=== PATIENT | male | born 1955 | race Caucasian/White ===

== ENCOUNTER 2019-08-01 09:10 | Outpatient (CLI) | payer BC, SELFPAY ==
--- NOTE | 2019-08-01 | EST_ITS ---
Patient Info Name: Noah Ordaz Age: 64 years : 1955 Gender: Male Ht: 73 in Wt: 336 lbs BSA: 2.87 m2 Exam Date: 08/01/2019 11:29 AM Exam Location: [facility] Stress Patient Status: Preadmit Admit Date: 07/26/2019 Staff Ordering Physician: Andre Jeter MD Attending Provider: Andre Jeter MD Exercise Technologist: Jadyn Jacobsen RDCS Exercise Physician: Temo Cordoba DO Exam Type: CA stress lilibeth w NM Study Info Indications Z01.818 - Encounter for other preprocedural examination A regadenoson stress test was performed. Summary 1. 1. Negative lexiscan stress test for ischemic ST changes by ECG criteria. 2. 2. Stable hemodynamics throughout the test. 3. 3. Nuclear scan to follow and will be reported separately. Please correlate with it. 4. 4. Patient informed of the above results. Protocol: Lexiscan Stress ECG Details Stage: REST Duration (min): 5 min : 16 sec HR (bpm): 91 SBP (mmHg): 134 DBP (mmHg): 63 Stage: REST Duration (min): 7 min : 57 sec HR (bpm): 100 SBP (mmHg): 134 DBP (mmHg): 63 Stage: STAGE 1 Duration (min): 1 min : 0 sec HR (bpm): 114 SBP (mmHg): 113 DBP (mmHg): 74 Stage: RECOVERY Duration (min): 1 min : 0 sec HR (bpm): 115 SBP (mmHg): 97 DBP (mmHg): 70 Stage: RECOVERY Duration (min): 2 min : 0 sec HR (bpm): 119 SBP (mmHg): 97 DBP (mmHg): 70 Stage: RECOVERY Duration (min): 3 min : 0 sec HR (bpm): 113 SBP (mmHg): 89 DBP (mmHg): 61 Stage: RECOVERY Duration (min): 4 min : 0 sec HR (bpm): 115 SBP (mmHg): 89 DBP (mmHg): 61 Stage: RECOVERY Duration (min): 4 min : 43 sec HR (bpm): 108 SBP (mmHg): 128 DBP (mmHg): 64 Rest HR: 100 bpm Peak HR: 119 bpm Rest Sys BP: 134 mmHg Peak Sys BP: 128 mmHg Max Pred HR: 154 bpm % Max Pred HR: 77 % Target HR: 131 bpm Max RPP: 15,232 bpm*mmHg Termination Reason: Completed protocol Cardiac Symptoms: None Total Time: 1 min : 0 sec Rest Rapp BP: 63 mmHg Peak Rapp BP: 64 mmHg Total Dose: 0.4 mg Resting ECG Sinus rhythm, PVC's, RBBB. Stress ECG No ST changes. Arrhythmias None. Report Signatures
--- NOTE | ~2019-08-01 | NM_ITS ---
EXAMINATION: NM lilibeth stress w perfusion DATE: 08/01/2019 16:13 CDT INDICATION: Dyspnea. TECHNIQUE: Rest images were obtained following intravenous administration of 9.1 mCi Tc99m tetrofosmi n (Myoview). The patient was infused intravenously with Lexiscan (regadenoson). Then, 26.2 mCi Tc99m tetrofosmin (Myoview) was administered intravenously, and stress images were obtained. Data was recon structed into short axis and horizontal and vertical long axis SPECT images. Gated SPECT images were also obtained. COMPARISON: None. FINDINGS: There is a small reversible perfusion abnormality of the septum extending to the apex. No s ignificant fixed perfusion abnormalities are seen. There is no segmental wall motion abnormality. Le ft ventricular ejection fraction measures 55%. IMPRESSION: 1. Small reversible perfusion abnormality of the septal wall extending to the apex, compatible with i schemia. 2. Decreased left ventricular ejection fraction measuring 55%. Reviewed, dictated and finalized at location A. IMPRESSION: 1. Small reversible perfusion abnormality of the septal wall extending to the a pex, compatible with ischemia. 2. Decreased left ventricular ejection fraction measuring 55%.
== END 2019-08-01 09:11 | disposition home or self-care (01) ==
PROVIDERS: PCP Internal Medicine; Visit Provider Internal Medicine
DX: R06.09 Other forms of dyspnea (principal)
CPT/HCPCS: 78452; 93017; A9502; J2785

== ENCOUNTER → 2020-05-15 10:06 | Outpatient (CLI) | payer BC, SELFPAY ==
--- NOTE | ~2020-05-15 | XR_ITS ---
EXAMINATION: XR sacroiliac joints min 3V, XR lumbar spine 2-3V EXAM DATE: 05/15/2020 10:43 (accession [id number]), 05/15/2020 10:44 (accession [id number]) INDICATION: M79.605 - Pain in left leg and hip . TECHNIQUE: Lumber spine frontal, lateral, lateral L5-S1 projections for interpretation. Frontal, dana ateral oblique projections of the sacroiliac joints. There are no prior studies for comparison. FINDINGS: Severe lumbar disc disease. There are lower lumbar laminectomies. There is a few millimeter s of retrolisthesis L2 on L3 and L3 on L4, a few millimeters anterolisthesis L5 on S1. Diffuse nonspe cific sclerosis of the L3, L4 and L5 vertebral bodies. Sacrum, sacroiliac joints, sacral arcuate lines are symmetric and intact. There is mild to moderate b ilateral sacroiliac primary osteoarthritis. Bilateral hip replacement. Lower lumbar laminectomies, s pondylosis. IMPRESSION: 1. Severe lumbar spondylosis. 2. Nonspecific lower lumbar sclerosis. 3. Mild to moderate bilateral sacroiliac osteoarthritis. Reviewed, dictated and finalized at location A. FOOD CASHIER IMPRESSION: 1. Severe lumbar spondylosis. 2. Nonspecific lower lumbar sclerosis. 3. Mild to moderate bilateral sacroiliac osteoarthritis.
--- NOTE | ~2020-05-15 | XR_ITS ---
XR chest 2V 05/15/2020 10:44 Indication: Cough. Covid Positive diagnosis. Procedure: 2 view chest Comparison: 01/23/2004 Findings: Heart size is normal. There is subsegmental atelectasis left mid thorax. No focal pneumonia , edema, pleural effusion or pneumothorax. No acute osseous abnormality. There is diffuse idiopathic skeletal hyperostosis (DISH) of the thoracic spine. Impression: 1: Subsegmental atelectasis left mid thorax. Reviewed, dictated and finalized at location A. NESS SUPPORT SPECIALIST Impression: 1: Subsegmental atelectasis left mid thorax.
== END ==
PROVIDERS: PCP Internal Medicine; Visit Provider Internal Medicine
DX: M47.896 Other spondylosis, lumbar region (principal); M51.36 Other intervertebral disc degeneration, lumbar region; R91.8 Other nonspecific abnormal finding of lung field
CPT/HCPCS: 71046; 72100; 72202

== ENCOUNTER → 2020-09-10 10:46 | Outpatient (CLI) | payer BC, SELFPAY ==
--- NOTE | ~2020-09-10 | US_ITS ---
EXAMINATION: US renal BI EXAM DATE: 09/10/2020 11:11 INDICATION: R79.89 - Other specified abnormal findings of blood chemistry. TECHNIQUE: Multiple grayscale and Doppler images of the kidneys were obtained (by a technologist who performed the scan) and subsequently reviewed. There is no prior study for comparison. FINDINGS: Bilateral renal cortical thinning. Right kidney: There is normal contour and echogenicity. It measures 13.9 x 7.0 x 8.6 centimeters. T here are no focal renal lesions identified. There is no hydronephrosis. Left kidney: There is normal contour and echogenicity. It measures 13.0 x 7.1 x 6.4 centimeters. Th ere are no focal renal lesions identified. There is no hydronephrosis. Bladder unremarkable. IMPRESSION: 1. Bilateral renal cortical thinning with normal kidney dimensions and echogenicity. 2. No hydronephrosis. Reviewed, dictated and finalized at location B. IMPRESSION: 1. Bilateral renal cortical thinning with normal kidney dimensions and echogen icity. 2. No hydronephrosis.
== END ==
PROVIDERS: PCP Internal Medicine; Visit Provider Internal Medicine
DX: R79.89 Other specified abnormal findings of blood chemistry (principal)
CPT/HCPCS: 76775

== ENCOUNTER → 2020-11-14 11:03 | Outpatient (CLI) | payer BC, SELFPAY ==
--- NOTE | ~2020-11-14 | XR_ITS ---
EXAMINATION: XR abdomen/kub 1V EXAM DATE: 11/14/2020 11:26 INDICATION: N20.0 - Calculus of kidney. States passed kidney stone yesterday. TECHNIQUE: Frontal projection(s) of the abdomen for interpretation. Comparison is made to prior exami nation from 08/25/2018. FINDINGS: There is expected amount of colonic stool and gas. No small bowel dilation, nonobstructi ve bowel gas pattern. There are no suspicious calcifications identified. There is no organomegaly suspected. Advanced thoracolumbar spondylosis and large bridging endplate osteophytes, diffuse idio pathic skeletal hyperostosis. Bilateral hip replacements. IMPRESSION: No suspicious soft tissue calcifications identified. Reviewed, dictated and finalized at location B.
== END ==
PROVIDERS: PCP Internal Medicine; Visit Provider Internal Medicine
DX: N20.0 Calculus of kidney (principal)
CPT/HCPCS: 74018

== ENCOUNTER 2022-09-30 07:39 | Outpatient (CLI) | payer BC, SELFPAY ==
--- NOTE | 2022-09-30 07:46 | ECHO_ITS ---
Patient Info Name: Noah Ordaz Age: 67 years : 1955 Gender: Male Ht: 73 in Wt: 330 lbs BSA: 2.84 m2 HR: 73 bpm BP: 162 / 93 mmHg Heart Rhythm: Sinus Rhythm Technical Quality: Fair Exam Date: 09/30/2022 8:01 AM Exam Location: [facility] Patient Status: Outpatient Admit Date: 09/30/2022 Staff Ordering Physician: Andre Jeter MD Cafeteria Or Lunchroom Checker: Sindy Mendiola RDCS Attending Provider: Andre Jeter MD Referring Physician: Steffany SELLERS; Exam Type: CA echo doppler color flow Study Info Indications I10 - Essential (primary) hypertension Complete two-dimensional, color flow and Doppler transthoracic echocardiogram is performed. Summary 1. Complete two-dimensional, color flow and Doppler transthoracic echocardiogram is performed. 2. Left ventricular chamber dimension is normal. 3. Left ventricular systolic function is normal, estimated at 55-60%. 4. Left ventricular septal wall motion is abnormal with septal motion related to bundle branch block. 5. The left ventricular diastolic function is grade I diastolic dysfunction. 6. E/e' 11 is mildly elevated. 7. The aortic root size at the sinus of Valsalva is mildly dilated at 4.3 cm. Left Ventricle E/e' 11 is mildly elevated. Left ventricular chamber dimension is normal. Left ventricular systolic function is normal, estimated at 55-60%. Left ventricular septal wall motion is abnormal with septal motion related to bundle branch block. The left ventricular diastolic function is grade I diastolic dysfunction. Right Ventricle Right ventricular systolic function is normal and with normal TAPSE 2.2 cm. Right ventricular chamber dimension is normal. Left Atria Left atrial chamber dimension is normal. Right Atria Right atrial chamber dimension is normal. Aortic Valve The aortic valve is trileaflet. There is no aortic valve stenosis. There is no aortic valve regurgitation. Pulmonic Valve There is no pulmonic regurgitation. Mitral Valve There is no mitral valve stenosis. There is no mitral valve regurgitation. Tricuspid Valve There is no tricuspid valve regurgitation. Pericardium/Pleural There is no pericardial effusion. Inferior Vena Cava Normal inferior vena cava with >50% collapse upon inspiration consistent with normal right atrial pressure, 5 mmHg. Aorta The aortic root size at the sinus of Valsalva is mildly dilated at 4.3 cm. Left Ventricular Outflow Tract Name Value Normal LVOT 2D LVOT Diameter 2.3 cm LVOT Doppler LVOT Peak Gradient 2 mmHg LVOT Mean Gradient 1 mmHg LVOT VTI 17 cm LVOT VTI/AV VTI Ratio 0.7 LVOT Stroke Volume 67 ml LVOT CO 5.0 l/min LVOT CI 1.8 l/min/m2 Pulmonic Valve Name Value Normal RVOT Doppler RVOT Peak Gradient
== END 2022-09-30 07:40 | disposition home or self-care (01) ==
PROVIDERS: PCP Internal Medicine; Visit Provider Internal Medicine
DX: R94.39 Abnormal result of other cardiovascular function study (principal); I10 Essential (primary) hypertension
CPT/HCPCS: 93306

== ENCOUNTER → 2022-12-02 10:38 | Outpatient (CLI) | payer BC, SELFPAY ==
--- NOTE | ~2022-12-02 | US_ITS ---
EXAMINATION: US soft tissue UE LT DATE: 12/02/2022 11:11 INDICATION: Soft tissue mass in the left upper extremity TECHNIQUE: Multiple grayscale and Doppler ultrasound images of the region of concern at the proximal left upper extremity were obtained. COMPARISON: None FINDINGS: The mass of concern appears to correspond to a noncompressible thrombosed left cephalic vein which ex tends from the antecubital fossa to the shoulder with no evident internal vascular flow on color Dopp ler. IMPRESSION: Reviewed, dictated and finalized at location A. 1. Mass of concern corresponds to the thrombosed left cephalic vein. Dr. Oconnor discussed these fin dings with Dr. Jeter at 8:45 AM on 12/03/2022. Electronically signed by Homer Oconnor M.D. on 12/03 8:48 CDT IMPRESSION:
== END ==
PROVIDERS: PCP Internal Medicine; Visit Provider Internal Medicine
DX: R22.32 Localized swelling, mass and lump, left upper limb (principal)
CPT/HCPCS: 76882

== ENCOUNTER → 2022-12-04 10:35 | Outpatient (CLI) | payer BC, SELFPAY ==
--- NOTE | ~2022-12-04 | XR_ITS ---
Supine and upright views of the abdomen Clinical history: Dysuria Findings: Bowel gas pattern is nonspecific. No evidence for obstruction or free air. No abnormal mass lesion or calcification is seen. Bilateral hip arthroplasties are in place. There is advanced degene rative spondylosis of the lumbar spine. Impression: Nonobstructive bowel gas pattern. No definite abnormal calcification. Degenerative change of the lumbar spine. Reviewed, dictated and finalized at location . Impression: Nonobstructive bowel gas pattern. No definite abnormal calcification. Degenerative change of the lumbar spine.
== END ==
PROVIDERS: PCP Internal Medicine; Visit Provider Internal Medicine
DX: R30.9 Painful micturition, unspecified (principal); M47.816 Spondylosis without myelopathy or radiculopathy, lumbar region; Z87.442 Personal history of urinary calculi
CPT/HCPCS: 74018

== ENCOUNTER → 2022-12-11 13:46 | Outpatient (CLI) | payer BC, SELFPAY ==
--- NOTE | ~2022-12-11 | CT_ITS ---
EXAMINATION: CT abdomen pelvis wo con DATE: 12/11/2022 14:23 INDICATION: Hematuria, unspecified TECHNIQUE: Computed tomography (CT) of the abdomen and pelvis was performed without intravenous contr ast. The dose-length product (DLP) was 1128.14 mGy-cm. Automated exposure control and iterative recon struction technique were employed. COMPARISON: None FINDINGS: Minimal dependent atelectasis is present in the lung bases. The heart size is normal. There is small sliding hiatal hernia. Cysts of the liver measure up to 6 mm in the left hepatic lobe. The spleen, pancreas, gallbladder, and adrenal glands are normal. There is mild atrophy of the right kidn ey and moderate atrophy of the left kidney. Nonobstructing stones of the left kidney measure 11 mm in the lower pole and 14 mm in the mid kidney. There is a 2 cm cyst of the left kidney upper pole. No s tones are identified in the visualized ureters. No hydronephrosis or hydroureter. Streak artifact fro m bilateral hip arthroplasties obscures visualization of the distal ureters and bladder. No pathologi dee enlarged abdominal or pelvic lymph nodes are identified. No free intraperitoneal gas or evidenc e of bowel obstruction. Colonic diverticulosis is present without evidence of diverticulitis. There i s severe lumbar spondylosis. IMPRESSION: 1. Nonobstructing left nephrolithiasis. Reviewed, dictated and finalized at location F.
== END ==
PROVIDERS: PCP Internal Medicine; Visit Provider Internal Medicine
DX: R31.9 Hematuria, unspecified (principal); N20.0 Calculus of kidney
CPT/HCPCS: 74176

== ENCOUNTER → 2023-04-13 09:48 | Outpatient (CLI) | payer BC, SELFPAY ==
--- NOTE | ~2023-04-13 | CT_ITS ---
Non-contrast CT scan of the Abdomen and Pelvis Clinical indication: Left renal stone Technique: 2.5 mm axial scans were obtained through the abdomen and pelvis without intravenous or or al contrast. Dose reduction technique was used on this scan by utilizing automated exposure control a nd iterative reconstruction technique. The dose-length product (DLP) was 1107.07 mGy-cm. COMPARISON: 12/11/2022 Findings: Images through the lung bases reveal no abnormalities. Nonobstructing left renal stones are present, largest at the upper pole measuring 9 mm. No right adair l stones seen. No ureteral stone or hydronephrosis on either side. The liver, spleen, pancreas, gallbladder, and adrenals appear normal. There is no aortic aneurysm. There is no evidence of bowel obstruction. Images through the pelvis are degraded by streak artifact from bilateral hip arthroplasty. No gross p elvic abnormality seen. No gross pelvic mass seen. No ascites. There is extensive DISH and degenerati ve change in the visualized spine. Impression: Nonobstructing left nephrolithiasis, as detailed above. No hydronephrosis. Distal ureters are obscured by streak artifact from bilateral hip arthroplasties. Reviewed, dictated and finalized at [facility]. CONSULTANT Impression: Nonobstructing left nephrolithiasis, as detailed above. No hydronephrosis. Distal ureters are obscured by streak artifact from bilateral hip arthroplastie s.
== END ==
PROVIDERS: PCP Urology; Visit Provider Urology
DX: N20.0 Calculus of kidney (principal)
CPT/HCPCS: 74176

== ENCOUNTER 2023-09-17 13:44 | Outpatient (CLI) | payer BC, SELFPAY ==
--- NOTE | ~2023-09-17 | CT_ITS ---
EXAMINATION: CT abdomen pelvis wo con DATE: 09/17/2023 14:00 INDICATION: Left kidney stone TECHNIQUE: Computed tomography (CT) of the abdomen and pelvis was performed without intravenous contr ast. Automated exposure control and iterative reconstruction technique were employed. Exam dose: 112 2.43 mGy-cm total exam DLP. COMPARISON: 04/13/[address] abdomen and pelvis FINDINGS: Mild discoid atelectasis or scarring at the lung bases. No basilar pulmonary consolidation is noted. Normal heart size. No pericardial or pleural effusion. Small sliding hiatal hernia. Occasional small hepatic probable cysts. No suspicious hepatic spacing of a mass lesion. Normal splen ic size. No pancreatic mass lesion or calcification. The gallbladder is present. No pericholecystic fluid or fat stranding. No bile duct or pancreatic chapis t dilatation. Normal morphology of the adrenal glands. Approximately 5.4 mm posterior mid left renal nonobstructing calculus. There is prominent diffuse lef t renal atrophy. No other urinary tract calculus or hydroureteronephrosis is detected. The right distal ureters as wel l as the urinary bladder and prostate gland are largely obscured by extensive streak artifact from bi lateral total hip arthroplasties. There is atherosclerotic calcification but normal caliber of the abdominal aorta and iliac arteries. No abdominal aortic aneurysm. No intraperitoneal or retroperitoneal or pelvic mass lesion or adenopat hy or ascites is noted. There are innumerable diverticula of the left colon; no CT evidence of diverticulitis. Normal appendix. No bowel obstruction, bowel wall thickening, pneumatosis or intraperitoneal free air is evident. Small fat-containing umbilical hernia. Diffuse idiopathic skeletal hyperostosis of the thoracolumbar spine. There is fusion at L1-2 interver tebral disc space and severe degenerative disc disease at the remaining lumbar and lumbosacral levels . No suspicious osteolytic or osteoblastic lesion is noted. IMPRESSION: Left renal atrophy Nonobstructing 5.4 mm left renal calculus No urinary tract obstruction or hydronephrosis is detected Extensive diverticulosis of left colon; no CT evidence of diverticulitis Normal appendix Small sliding hiatal hernia Occasional very small hepatic cysts Severe degenerative changes of the thoracic and lumbar spine Reviewed, dictated and finalized at Location A. Reviewed, dictated and finalized at location B.
== END 2023-09-17 13:45 ==
PROVIDERS: PCP Urology; Visit Provider Urology
DX: N20.0 Calculus of kidney (principal); N26.1 Atrophy of kidney (terminal); K57.30 Diverticulosis of large intestine without perforation or abscess without bleeding; K44.9 Diaphragmatic hernia without obstruction or gangrene; K76.89 Other specified diseases of liver; M47.894 Other spondylosis, thoracic region; M47.896 Other spondylosis, lumbar region
CPT/HCPCS: 74176

== ENCOUNTER 2023-11-05 11:51 | Outpatient (CLI) | payer BC, SELFPAY ==
--- NOTE | ~2023-11-05 | XR_ITS ---
XR abdomen/kub 1V Ordering provider: Andre Jeter MD History: . R10.9 - Unspecified abdominal pain . Comparison: None. FINDINGS: BOWEL: Nonobstructive bowel gas pattern. ORGANOMEGALY: None. SIGNIFICANT PATHOLOGIC CALCIFICATIONS: None. Possible faint calcification in the right renal area a lthough this is most likely in the fecal material. OTHER: No free air is seen under the diaphragm. Degenerative changes of the spine. Bilateral hip arthroplasty. IMPRESSION: NO ACUTE ABDOMINAL FINDINGS. Reviewed, dictated and finalized at location A.
== END 2023-11-05 11:52 ==
PROVIDERS: PCP Internal Medicine; Visit Provider Internal Medicine
DX: R10.9 Unspecified abdominal pain (principal)
CPT/HCPCS: 74018

== ENCOUNTER 2023-12-16 11:18 | Outpatient (CLI) | payer BC, SELFPAY ==
--- NOTE | ~2023-12-16 | US_ITS ---
US renal BI 12/16/2023 11:39 Procedure: Realtime transabdominal ultrasound of the kidneys and bladder. Indication: Chronic kidney disease Comparison: Ultrasound dated 09/10/2020 Findings: Renal echotexture is normal bilaterally without hydronephrosis, contour deforming mass or r enal calculus. The right kidney measures 13.6 cm and left kidney measures 13 cm. Bladder is not adequ ately visualized. Impression: 1: Unremarkable renal ultrasound. No stones, masses or hydronephrosis. Reviewed, dictated and finalized at location B. Impression: 1: Unremarkable renal ultrasound. No stones, masses or hydronephrosis.
== END 2023-12-16 11:19 ==
LOC: MICIMG 11:18
PROVIDERS: PCP Internal Medicine; Visit Provider Internal Medicine Nephrology
DX: N18.32 Chronic kidney disease, stage 3b (principal)
CPT/HCPCS: 76775

== ENCOUNTER 2024-03-16 11:01 | Outpatient (CLI) | payer BC, SELFPAY ==
--- NOTE | ~2024-03-16 | XR_ITS ---
Supine and upright views of the abdomen Clinical history: Left kidney stone COMPARISON: 11/05/2023 Findings: Bowel gas pattern is nonspecific. No evidence for obstruction or free air. No abnormal mass lesion or calcification is seen. Bilateral hip arthroplasties are present. There is extensive degene rative changes of the spine. Impression: No significant abnormality is seen. Reviewed, dictated and finalized at location . TENDER Impression: No significant abnormality is seen.
== END 2024-03-16 11:02 | disposition home or self-care (01) ==
LOC: MICIMG 11:02
PROVIDERS: PCP Internal Medicine; Visit Provider Urology
DX: N20.0 Calculus of kidney (principal)
CPT/HCPCS: 74018

== ENCOUNTER 2025-01-02 13:03 | Outpatient (CLI) | payer BC, SELFPAY ==
--- OUTSIDE RECORDS SUMMARY | 2000-03-22 10:15 | XMS_ITS | Continuity of Care Document ---
Author Organization [facility] Address [address] [place] [address] Phone Care Team Providers Care Merchandise Worker Name Role Phone Deanne Jackson Unavailable Unavailable Advance Directives Directive Yes / No Effective Date File Name No Information Encounters Encounter Description Practice Location Reason(s) For Visit Diagnoses Date Provider Providers Copied on Encounter [facility], [id number] [place] [address] [address], [place], [place], [id number], [place] tel:[phone] [facility] No Information [phone] Renetta Alicea. [address] , [address], [place], [address], [place]. tel:[phone] Family History Family Member Type Diagnosis Age At Onset No Information Payers Payer name Insurance type Covered democrat ID Authoriza tion(s) No Information Social History Type Description Quantity Date Captured Comments Sex Male Smoking Status No Information Chief Complaint And Reason For Visit No Information Reason For Referral Reason For Referral No Information History Of Present Illness Encounter Date Complaint History Of Prese nt Illness No Information Functional Status Date Functional Assessmen t No Information Instructions Date Instruction Additional Infor mation No Information Assessments Type Assessment Date No Information Patient Care Teams Name Effective Dates (start - stop) Status Members No Information
--- OUTSIDE RECORDS SUMMARY | 2025-01-02 13:09 | XMS_ITS | Clinical Summary ---
Author Organization [facility] Address [address] [place] [address] Care Team Providers Care Consumer Services Advisor Name Role Phone Shannon HENDRIX MD, Ryan Unavailable [phone] Andre Jeter MD Primary Care Provider [phone] Source Comments [facility],non-owned Affiliates and Associated Physician Practices is amultiple site organization consisting of ambulatory clinics and hospital sitesin [place], [place], [place] and [place]. This disclosure is being madepursuant to the Care Everywhere program and may not contain all information available regarding this patient. Last updated 18.[facility] Allergies No known active allergies Medications * Be aware that medications may not be up to date on this document. Alwaysverify current medications with the patient. lisinopril-hydro chlorothiazide (PRINZIDE; ZESTORETIC) 20-12.5 MG tablet Take 1 Tab by mouth daily. Active phentermine (ADIPEX-P) 37.5 MG tablet Take 37.5 mg by mouth daily before breakfast TO STOP 48 HOURS PRIOR TO SURGERY Active rosuvastatin (CRESTOR) 20 MG tablet 9 Active fluocinolone acetonide (SYNALAR) 0.01 % cream APPLY TO AFFECTED AREA TWICE A DAY 0 Active VASCEPA 1 g capsule 2 g 2 times daily with morning and evening meal 0 Active metFORMIN (GLUCOPHAGE) 1000 MG tablet Take 1,000 mg by mouth 2 times daily 0 Active fluticasone propionate (FLONASE) 50 MCG/ACT nasal spray [place] 2 sprays into each nostril once daily Active Probiotic Product (PROBIOTIC DAILY) capsule Take by mouth once daily Active celecoxib (CELEBREX) 200 MG capsule Take 1 capsule by mouth 2 times daily 60 capsule 0 Active testosterone (ANDROGEL;TESTIM ) 50 MG/5GM (1%) gel Resume when recover from current surgery 0 Active Testosterone Undecanoate (JATENZO) 237 MG CAPS Resume when recover from current surgery 0 Active HYDROcodone-acet aminophen (NORCO) 5-325 MG tablet Take 1 (one) tablet by mouth every 8 hours as needed for Pain 15 tablet 1 Active celecoxib (CELEBREX) 100 MG capsule 1 Active phentermine (ADIPEX-P) 37.5 MG capsule 1 Active Active Problems Problem Noted Date Diagnosed Date History of left knee replacement 03/21/2020 Primary osteoarthritis of left knee 12/26/2018 Preoperative examination 06/10/2009 Immunizations Immunization Administration Dates Next Due TDAP (7yrs+) 02/05/2021 Family History Medical History Relation Name Comments Arthritis - Rheumatoid Father CAD (Coronary Artery Disease) Father Heart Failure Father Arthritis - Rheumatoid Mother Heart Failure Mother Arthritis - Rheumatoid Sister 2 Relation Name Status Comments Father Mother Sister 1 Alive Sister 2 Social History Tobacco Use Types Packs/Day Years Used Date Smoking Tobacco: Never Smokeless Tobacco: Never Alcohol Use Standard Drinks/Week Comments Yes 6 (1 standard drink = 0.6 oz pur e alcohol) social Sex and Gender Information Value Date Recorded Sex Assigned at Not on file 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 Gender Identity Not on file Sexual Orientation Not on file 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 Not on file Not on file Last Filed Vital Signs Vital Sign Reading Time Taken Comments Blood Pressure 139/77 02/05/2021 7:01 PM CDT Pulse 58 02/05/2021 4:32 PM CDT Temperature 36.5 C (97.7 F) 02/05/2021 4:32 PM CDT Respiratory Rate 18 02/05/2021 4:32 PM CDT Oxygen Saturation 94% 02/05/2021 7:01 PM CDT Inhaled Oxygen Concentration - - Weight 149.7 kg (330 lb) 07/08/2021 11:50 AM FIRE SAFETY INSPECTOR Height 185.4 cm (6' 1) 02/07/2021 10:08 AM CDT Body Mass Index 43.54 02/07/2021 10:08 AM CDT Plan of Treatment Health Maintenance Due Date Last Done Comments COLOGUARD (AGES 45-75) - COLON CA SCREENING 1953 COLON MONITORING 1953 COLONOSCOPY - COLON CA SCREENING 1953 CT COLONOGRAPHY - COLON CA SCREENING 1955 Colorectal Cancer Screening 1953 FIT - COLON CA SCREENING 1953 FLEX SIG - COLON CA SCREENING 1953 HEPATITIS C SCREENING 07/03/1971 PNEUMOCOCCAL VACCINE 50+ (1 of 1 - PCV) 2003 ZOSTER VACCINE (1 of 2) 2003 COVID-19 VACCINE (1 - season) 2024 SCREENING FOR DIABETES 02/06/2024 , 02/26/2020, 08/13/2015, Additional history exists DEPRESSION SCREENING 05/10/2024 INFLUENZA VACCINE (#1) 2025 Respiratory Syncytial Virus (RSV) Vaccine Pt: or over 60 yrs (1 - 1-dose 75+ series) 2028 DTAP/TDAP/TD VACCINES (2 - Td or Tdap) 02/05/2031 02/05/2021 HEPATITIS B VACCINE Aged Out No longe r eligible based on patient's age to complete this topic HIB VACCINE Aged Out No longer eligi ble based on patient's age to complete this topic HPV VACCINE Aged Out No longer eligi ble based on patient's age to complete this topic MENINGOCOCCAL (Group B) VACCINE SHARED DECISION-MAKING Aged Out No longer eligible based on patient's age to complete this topic MENINGOCOCCAL GROUPS A/C/Y/W VACCINE Aged Out No longer eligible based on patient's age to complete this topic Medical Devices Implanted Type Area Mobile Architect Device Identifier Shelf Expiration Date Model / Serial / Lot Seal Dura 5ml Implanted:Qty: 1 on 08/29/2015 by Miguel Grissom MD at [facility] Back [employer] 06/09/2016 [id number] / / [id number] Cmnt Bone Djo Srg Cblt 40gm Hvisc Strl Implanted:Qty: 1 on 02/26/2020 by Frantz Levy MD at [facility] Left: Knee [employer] 01/31/2021 600-15-000 / / [id number] Harshal Bone [place]-G Hv 40/20 Implanted:Qty: 1 on 02/26/2020 by Frantz Levy MD at [facility] Left: Knee [employer] 06/02/2020 600-15-100 / / [id number] Cmpnt Fem Kn Lt Cr Cmnt Prm Vngrd Intlk Implanted:Qty: 1 on 02/26/2020 by Frantz Levy MD at [facility] Left: Knee [employer] 07/08/2029 [id number] / / [id number] Cmpnt Ptlr 31mm 1 Pg Wire Ascnt Arcm Kn Implanted:Qty: 1 on 02/26/2020 by Frantz Levy MD at [facility] Left: Knee [employer] 01/01/2025 [id number] / / [id number] Tray Tib 83mm Kn Cocr I Beam Implanted:Qty: 1 on 02/26/2020 by Frantz Levy MD at [facility] Left: Knee [employer] 11/10/2029 [id number] / / [id number] Brng 79ave33ow Vngrd Arcm Kn Ant Stab Implanted:Qty: 1 on 02/26/2020 by Frantz Levy MD at [facility] Left: Knee [employer] 07/21/2023 [id number] / / [id number] Procedures Procedure Name Priority Date/Time Associated Diagnosis Comments COMPREHENSIVE METABOLIC PANEL STAT 02/05/2021 5:58 PM CDT from Last 3 Months or Most Recently Relevant to Health Maintenance Results * (ABNORMAL) COMPREHENSIVE METABOLIC PANEL (02/05/2021 5:58 PM CDT) [facility] Glucose 92 70 - 105 mg/dL 02/05/2021 6:24 PM CDT [facility] Sodium 142 136 - 145 mmol/L 02/05/2021 6:24 PM CDT [facility] Potassium 4.6 3.5 - 5.1 mmol/L 02/05/2021 6:24 PM CDT [facility] Chloride 105 98 - 107 mmol/L 02/05/2021 6:24 PM CDT [facility] CO2 24 23 - 31 mmol/L 02/05/2021 6:24 PM CDT [facility] Calcium 10.2 8.4 - 10.4 mg/dL 02/05/2021 6:24 PM CDT [facility] Anion Gap 13 8 - 18 mmol/L 02/05/2021 6:24 PM CDT [facility] BUN 25 8.4 - 25.7 mg/dL 02/05/2021 6:24 PM CDT [facility] Creatinine 1.75(H) 0.72 - 1.25 mg/dL 02/05/2021 6:24 PM CDT [facility] Alkaline Phosphatase 50 40 - 150 U/L 02/05/2021 6:24 PM CDT [facility] ALT 36 0 - 61 U/L 02/05/2021 6:24 PM CDT [facility] AST 27 5 - 34 U/L 02/05/2021 6:24 PM CDT [facility] Protein Total 7.2 6.4 - 8.3 gm/dL 02/05/2021 6:24 PM CDT [facility] Albumin 4.4 3.2 - 4.6 gm/dL 02/05/2021 6:24 PM CDT [facility] Bilirubin Total 0.3 0.2 - 1.2 mg/dL 02/05/2021 6:24 PM CDT [facility] eGFR by MDRD 39(L) >60 mL/min/1.7 3m2 02/05/2021 6:24 PM CDT [facility] eGFR by MDRD 47(L) >60 mL/min/1.7 3m2 02/05/2021 6:24 PM CDT [facility] Blood BLOOD SPECIMEN / Unknown Venipuncture / Unknown 02/05/2021 5:58 PM CDT 02/05/2021 6:03 PM CDT Bess Pollack PA-C LAB - CHEMISTRY ORDERABL ES Final Result [facility] [id number] [place] [address] from Last 3 Months or Most Recently Relevant to Health Maintenance Insurance [facility] MEDIC[facility] Advance Directives * Full Code (Latest Code Status on File) Date Activated Date Inactivated Comments 02/26/2020 10:17 AM 02/27/2020 1:27 PM * Full Code Date Activated Date Inactivated Comments 08/29/2015 2:38 PM 08/30/2015 1:05 PM * Full Code Date Activated Date Inactivated Comments 06/18/2010 11:09 PM 06/22/2010 3:36 AM * Full Code Date Activated Date Inactivated Comments 06/25/2009 3:40 PM 06/28/2009 2:23 AM Care Teams Consumer Services Advisor Relationship Specialty Start Date End Date Andre Jeter MD PCP - General Internal Medicine 08/13/15 Ryan Ortega IV, MD Orthopedic Surgery 04/28/12
--- NOTE | 2025-01-02 13:40 | NEURO_ITS ---
Impression: # Diabetic complains of numbness of hands. ? # Severe Carpal Tunnel Syndrome, right more than left. ? # Bilateral Ulnar Neuropathy, right more than left. ? # Abnormal Needle/ EMG exam. Nerve Conduction Studies ?Stim Site NR Peak (ms) P-T Amp (?V) Site1 Site2 Delta-P (ms) Dist (cm) Javi (m/s) Left Median Anti Sensory (2-3nd Digit)??? NO RESPONSE Wrist ? 6.4 9.5 Wrist 2-3nd Digit 6.4 14.0 22 Wrist ? 7.7 7.8 Wrist 2-3nd Digit 6.4 14.0 22 Right Median Anti Sensory (2-3nd Digit)??? NO RESPONSE Wrist NR Wrist 2-3nd Digit 14.0 Wrist ? 8.9 6.5 Wrist 2-3nd Digit 14.0 Left Radial Anti Sensory (Base 1st Digit) Wrist ? 2.3 15.0 Wrist Base 1st Digit 2.3 0.0 Right Radial Anti Sensory (Base 1st Digit) Wrist ? 2.8 11.0 Wrist Base 1st Digit 2.8 0.0 Left Ulnar Anti Sensory (5th Digit) Wrist ? 3.7 5.3 Wrist 5th Digit 3.7 14.0 38 Right Ulnar Anti Sensory (5th Digit) Wrist ? 3.6 4.3 Wrist 5th Digit 3.6 14.0 39 ?Stim Site NR Onset (ms) O-P Amp (mV) Site1 Site2 Delta-0 (ms) Dist (cm) Javi (m/s) Left Median Motor (Abd Poll Brev) Wrist ? 8.8 1.5 Elbow Wrist 5.5 32.0 58 Elbow ? 14.3 0.9 Right Median Motor (Abd Poll Brev) Wrist ? 10.6 0.5 Elbow Wrist 2.0 30.0 150 Elbow ? 12.6 0.4 Left Ulnar Motor (Abd Dig Minimi) Wrist ? 3.7 6.6 A Elbow Wrist 7.2 33.0 46 A Elbow ? 10.9 3.8 B Elbow Wrist 4.7 26.0 55 B Elbow ? 8.4 1.7 Right Ulnar Motor (Abd Dig Minimi) Wrist ? 4.1 4.7 A Elbow Wrist 7.2 31.0 43 A Elbow ? 11.3 3.3 B Elbow Wrist 5.0 24.0 48 B Elbow ? 9.1 3.9 F Wave Studies ?NR F-Lat (ms) L-R F-Lat (ms) Left Median (Mrkrs) (Abd Poll Brev) ? 32.15 7.02 Right Median (Mrkrs) (Abd Poll Brev) ? 39.16 7.02 Left Ulnar (Mrkrs) (Abd Dig Min) ? 35.10 1.85 Right Ulnar (Mrkrs) (Abd Dig Min) ? 36.95 1.85 Electromyography ?Side Muscle Nerve Root Ins Act Fibs Amp Dur Recrt Comment Right 1stDorInt Ulnar C8-T1 Nml Nml Decr >12ms +1 Left 1stDorInt Ulnar C8-T1 Nml Nml Decr >12ms +1 Right ABD Dig Min Ulnar C8-T1 Nml Nml Nml >12ms Nml Left ABD Dig Min Ulnar C8-T1 Nml Nml Nml >12ms Nml Left Abd Poll Brev Median C8-T1 Nml Nml Decr >12ms +1 Right Abd Poll Brev Median C8-T1 Nml Nml Decr >12ms +1 Right Abd Poll Long Radial (Post Int) C7-8 Nml Nml Nml Nml Nml Left Abd Poll Long Radial (Post Int) C7-8 Nml Nml Nml Nml Nml Left Biceps Musculocut C5-6 Nml Nml Nml Nml Nml Right Biceps Musculocut C5-6 Nml Nml Nml Nml Nml Left BrachioRad Radial C5-6 Nml Nml Nml Nml Nml Right BrachioRad Radial C5-6 Nml Nml Nml Nml Nml Left Deltoid Axillary C5-6 Nml Nml Nml Nml Nml Right Deltoid Axillary C5-6 Nml Nml Nml Nml Nml Right Ext Digitorum Radial (Post Int) C7-8 Nml Nml Nml Nml Nml Left Ext Digitorum Radial (Post Int) C7-8 Nml Nml Nml Nml Nml Right Ext Indicis Radial (Post Int) C7-8 Nml Nml Nml Nml Nml Left Ext Indicis Radial (Post Int) C7-8 Nml Nml Nml Nml Nml Right FlexPolLong Median (Ant Int) C7-8 Nml Nml Nml Nml Nml Left FlexPolLong Median (Ant Int) C7-8 Nml Nml Nml Nml Nml Left PronatorTeres Median C6-7 Nml Nml Nml Nml Nml Right PronatorTeres Median C6-7 Nml Nml Nml Nml Nml Left Triceps Radial C6-7-8 Nml Nml Nml Nml Nml Right Triceps Radial C6-7-8 Nml Nml Nml Nml Nml
== END 2025-01-02 13:04 | disposition home or self-care (01) ==
PROVIDERS: PCP Internal Medicine; Visit Provider Internal Medicine
DX: R20.0 Anesthesia of skin (principal); G56.03 Carpal tunnel syndrome, bilateral upper limbs; G56.23 Lesion of ulnar nerve, bilateral upper limbs
CPT/HCPCS: 95886; 95911

== ENCOUNTER 2025-03-29 10:22 | Outpatient (CLI) | payer BC, SELFPAY ==
[2025-03-29 11:21] LABS: Anion Gap 9 mmol/L (4-12); Blood Urea Nitrogen 35 mg/dL (9-20); Calcium 9.3 mg/dL (8.4-10.2); Carbon Dioxide 28 mmol/L (22-30); Chloride 98 mmol/L (98-107); Estimated Glomerular Filt Rate 32; Glucose 85 mg/dL (65-110); Potassium 4.2 mmol/L (3.4-5.0); Sodium 135 mmol/L (137-145)
[2025-03-29 11:37] LABS: INR 1.0; Prothrombin Time 13.2 Seconds (11.1-14.7)
[2025-03-29 11:38] LABS: Partial Thromboplastin Time 26.6 Seconds (22.3-36.8)
--- OUTSIDE RECORDS SUMMARY | 2025-03-29 12:36 | XMS_ITS | Clinical Summary ---
Author Organization [facility] [employer] Address [address] [address] Care Team Providers Care Ammonia Print Operator Name Role Phone Shannon HENDRIX MD, Ryan Unavailable [phone] Andre Jeter MD Primary Care Provider [phone] Source Comments [facility],non-owned Affiliates and Associated Physician Practices is amultiple site organization consisting of ambulatory clinics and hospital sitesin [place], [place], [place] and [place]. This disclosure is being madepursuant to the Care Everywhere program and may not contain all information available regarding this patient. 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 Height 185.4 cm (6' 1) 02/07/2021 10:08 [...] 2003 ZOSTER VACCINE (1 of 2) 2003 SCREENING FOR DIABETES 02/06/2024 , 02/26/2020, 08/13/2015, Additional history exists DEPRESSION SCREENING 05/10/2024 COVID-19 VACCINE (1 - season) 2025 INFLUENZA VACCINE (#1) 2025 Respiratory Syncytial Virus [...] this topic Medical Devices Implanted Type Area Lung Splitter Device Identifier Shelf Expiration Date Model / Serial / Lot Seal Dura 5ml Implanted:Qty: 1 on 08/29/2015 by Miguel Grissom MD at [facility] Back [employer] 06/09/2016 [id number] / / [id number] Cmnt Bone Djo Srg Cblt 40gm Hvisc Strl Implanted:Qty: 1 on 02/26/2020 by Frantz Levy MD at [facility] Left: Knee [employer] 01/31/2021 600-15-000 / / [id number] Harshal Bone [place]-G Hv 40/20 Implanted:Qty: 1 on 02/26/2020 by Frantz Levy MD at [facility] Left: Knee [employer] 06/02/2020 600-15-100 / / [id number] Cmpnt Fem Kn Lt Cr Cmnt Prm Vngrd Intlk Implanted:Qty: 1 on 02/26/2020 by Frantz Levy MD at [facility] Left: Knee [employer] 07/08/2029 [id number] / / [id number] Cmpnt Ptlr 31mm 1 Pg Wire Ascnt Arcm Kn Implanted:Qty: 1 on 02/26/2020 by Frantz Levy MD at [facility] Left: Knee [employer] 01/01/2025 [id number] / / [id number] Tray Tib 83mm Kn Cocr I Beam Implanted:Qty: 1 on 02/26/2020 by Frantz Levy MD at [facility] Left: Knee [employer] 11/10/2029 [id number] / / [id number] Brng [id number] Vngrd Arcm Kn Ant Stab Implanted:Qty: 1 on 02/26/2020 by Frantz Levy MD at [facility] Left: Knee [employer] 07/21/2023 [id number] / / [id number] Procedures Procedure Name Priority Date/Time Associated Diagnosis Comments COMPREHENSIVE METABOLIC PANEL STAT 02/05/2021 5:58 PM CDT from Last 3 Months or Most Recently Relevant to Health Maintenance Results * (ABNORMAL) COMPREHENSIVE METABOLIC PANEL (02/05/2021 5:58 PM CDT) [facility] Glucose 92 70 - 105 mg/dL 02/05/2021 6:24 PM CDT [facility] Sodium 142 136 - 145 mmol/L 02/05/2021 6:24 PM CDT [facility] Potassium 4.6 3.5 - 5.1 mmol/L 02/05/2021 6:24 PM CDT [facility] Chloride 105 98 - 107 mmol/L 02/05/2021 6:24 PM CDT [facility] CO2 24 23 - 31 mmol/L 02/05/2021 6:24 PM CDT [facility] Calcium 10.2 8.4 - 10.4 mg/dL 02/05/2021 6:24 PM CDT [facility] Anion Gap 13 8 - 18 mmol/L 02/05/2021 6:24 PM CDT [facility] BUN 25 8.4 - 25.7 mg/dL 02/05/2021 6:24 PM CDT [facility] Creatinine 1.75(H) 0.72 - 1.25 mg/dL 02/05/2021 6:24 PM CDT [facility] Alkaline Phosphatase 50 40 - 150 U/L 02/05/2021 6:24 PM CDT [facility] ALT 36 0 - 61 U/L 02/05/2021 6:24 PM CDT [facility] AST 27 5 - 34 U/L 02/05/2021 6:24 PM CDT [facility] Protein Total 7.2 6.4 - 8.3 gm/dL 02/05/2021 6:24 PM CDT [facility] Albumin 4.4 3.2 - 4.6 gm/dL 02/05/2021 6:24 PM CDT [facility] Bilirubin Total 0.3 0.2 - 1.2 mg/dL 02/05/2021 6:24 PM CDT [facility] eGFR by MDRD 39(L) >60 mL/min/1.7 3m2 02/05/2021 6:24 PM CDT [facility] eGFR by MDRD 47(L) >60 mL/min/1.7 3m2 02/05/2021 6:24 PM CDT [facility] Blood BLOOD SPECIMEN / Unknown Venipuncture / Unknown 02/05/2021 5:58 PM CDT 02/05/2021 6:03 PM CDT Bess Pollack PA-C LAB - CHEMISTRY ORDERABL ES Final Result [facility] [id number] [place] [address] from Last 3 Months or Most Recently Relevant to Health Maintenance Insurance [facility] MEDIC[facility] Advance Directives * Full Code (Latest [...] 3:40 PM 06/28/2009 2:23 AM Care Teams Ammonia Print Operator Relationship Specialty Start Date End Date Andre Jeter MD PCP - General Internal Medicine 08/13/15 Ryan Ortega IV, MD Orthopedic Surgery 04/28/12
== END 2025-03-29 10:23 | disposition home or self-care (01) ==
LOC: ANHSURGERY 10:26
PROVIDERS: Anesthesiology; PCP Internal Medicine; Visit Provider Plastic Surgery
DX: I12.9 Hypertensive chronic kidney disease with stage 1 through stage 4 chronic kidney disease, or unspecified chronic kidney disease (principal); N18.1 Chronic kidney disease, stage 1; Z01.818 Encounter for other preprocedural examination
CPT/HCPCS: 36415; 80048; 85610; 85730

== ENCOUNTER 2025-04-11 00:39 | Day surgery (SDC) | payer BC, SELFPAY ==
--- NOTE | 2025-03-23 13:05 | PC.NURSE ---
[facility] has started construction of its new state of the art ER which will open Spring 2026. With this, we anticipate parking may be a challenge for some our surgical patients and families. Parking spaces are limited but are available for all Surgical, obstetrics, and ER patients sharing this lot. If you arrive and find you are having a hard time finding a parking space, please note that we understand the challenges, please drive around the hospital and park near Hospital Entrance 1. When you enter this entrance, you can ask a volunteer to direct or take you back to the surgical waiting area to check in. We appreciate everyone?s understanding of these expected challenges while we build for your future. Report to the Outpatient Waiting Room, entrance under the green pavilion located off [address], at time _7 AM on date __04/11/25 . Planned Procedure Time: ___9 AM .? Time changes happen often and if your time is changed the preop area will call you the afternoon before. NOTHING TO EAT AFTER MIDNIGHT AND NOTHING TO DRINK 8 HOURS PRIOR TO SURGERY PER DR ESTRADA - You and your visitor will be asked to self-screen and do not enter if you have any COVID symptoms. Please call surgeon if you need to reschedule. - A mask is optional within the hospital at this time. Take only the following medications with a SIP of water on the morning of surgery: NONE DO NOT STOP ANY OF YOUR OTHER PRESCRIPTION MEDICATIONS PRIOR TO SURGERY EXCEPT THE FOLLOWING Hold all vitamins and supplements for 3 days per anesthesiologist.LAST DOSE 04/07/25 Medications to discontinue per physician ____ASPIRIN_PER DR ESTRADA ZEPBOUND HOLD 10 DAY PER ANESTHESIA LAST DOSE 03/31/25 Please no make-up, nail eritrean, hairspray, perfume, deodorant, or body powder the day of surgery.? No jewelry (including any body piercings) or valuables the day of surgery, leave them at home.? Please take a shower or bath the night before, or the morning of, surgery with an antibacterial soap.? Wear comfortable, loose fitting clothing.? Children are encouraged to wear pajamas. - Jewelry must be removed prior to entering the operating room.? Rings and piercings that are not removed may be cut off. - The hospital will not accept responsibility for valuables.? - Please leave all valuables, including medications, at home the day of surgery. If you are going home after surgery, a licensed lifter/driver must drive you home.? - NO public transportation without another adult if you receive anesthesia. - We recommend that an adult stay with you for 24 hours following discharge. - We also recommend that you do not drive, make important decision, drink alcoholic beverages, or take any drugs that were not prescribed by your health care provider for at least 24 hours after your discharge time. For Pediatric surgeries, we recommend two adults accompany the child home. Follow any additional instructions given to you from your surgeon. Telephone instructions given to __PATIENT and asked if any additional questions and then verbalized understanding. Patient advised to call surgeon office or pre surgery nurse liaison [phone] if any additional questions.
[2025-03-23 13:25] VITALS: BMI 41.8
--- OUTSIDE RECORDS SUMMARY | 2025-04-11 00:42 | XMS_ITS | Clinical Summary ---
Author Organization [facility] Address [address] [place] [address] Care Team Providers Care Bacteriologist Medical Name Role Phone Shannon HENDRIX MD, Ryan Unavailable [phone] Andre Jeter MD Primary Care Provider [phone] Source Comments [facility],non-owned Affiliates and Associated Physician Practices is amultiple site organization consisting of ambulatory clinics and hospital sitesin [place], [place], [place] and [place]. This disclosure is being madepursuant to the Care Everywhere program and may not contain all information available regarding this patient. 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 Gender Identity Not on file Sexual Orientation [...] 149.7 kg (330 lb) 07/08/2021 11:50 AM HEALTH PROFESSIONAL Height 185.4 cm (6' 1) 02/07/2021 10:08 [...] this topic Medical Devices Implanted Type Area Marine Equipment Sales Engineer Device Identifier Shelf Expiration Date Model / Serial / Lot Seal Dura 5ml Implanted:Qty: 1 on 08/29/2015 by Miguel Grissom MD at [facility] Back [employer] 06/09/2016 [id number] / / [id number] Cmnt Bone Djo Srg Cblt 40gm Hvisc Strl Implanted:Qty: 1 on 02/26/2020 by Frantz Levy MD at [facility] Left: Knee [employer] 01/31/2021 600-15-000 / / [id number] Harshal Bone [place]-G Hv 40/20 Implanted:Qty: 1 on 02/26/2020 by Frantz Levy MD at [facility] Left: Knee [employer] 06/02/2020 600-15-100 / / [id number] Cmpnt Fem Kn Lt Cr Cmnt Prm Vngrd Intlk Implanted:Qty: 1 on 02/26/2020 by Frantz Levy MD at [facility] Left: Knee [employer] 07/08/2029 [id number] / / [id number] Cmpnt Ptlr 31mm 1 Pg Wire Ascnt Arcm Kn Implanted:Qty: 1 on 02/26/2020 by Frantz Levy MD at [facility] Left: Knee [employer] 01/01/2025 [id number] / / [id number] Tray Tib 83mm Kn Cocr I Beam Implanted:Qty: 1 on 02/26/2020 by Frantz Levy MD at [facility] Left: Knee [employer] 11/10/2029 [id number] / / [id number] [id number] Vngrd Arcm Kn Ant Stab Implanted:Qty: 1 on 02/26/2020 by Frantz Levy MD at [facility] Left: Knee [employer] 07/21/2023 [id number] / / [id number] Procedures Procedure Name Priority Date/Time Associated Diagnosis Comments COMPREHENSIVE METABOLIC PANEL STAT 02/05/2021 5:58 PM CDT from Last 3 Months or Most Recently Relevant to Health Maintenance Results * (ABNORMAL) COMPREHENSIVE METABOLIC PANEL (02/05/2021 5:58 PM CDT) [facility] Glucose 92 70 - 105 mg/dL 02/05/2021 6:24 PM CDT [facility] Sodium 142 136 - 145 mmol/L 02/05/2021 6:24 PM CDT [facility] Potassium 4.6 3.5 - 5.1 mmol/L 02/05/2021 6:24 PM CDT [facility] Chloride 105 98 - 107 mmol/L 02/05/2021 6:24 PM CDT [facility] CO2 24 23 - 31 mmol/L 02/05/2021 6:24 PM CDT [facility] Calcium 10.2 8.4 - 10.4 mg/dL 02/05/2021 6:24 PM CDT [facility] Anion Gap 13 8 - 18 mmol/L 02/05/2021 6:24 PM CDT [facility] BUN 25 8.4 - 25.7 mg/dL 02/05/2021 6:24 PM CDT [facility] Creatinine 1.75(H) 0.72 - 1.25 mg/dL 02/05/2021 6:24 PM CDT [facility] Alkaline Phosphatase 50 40 - 150 U/L 02/05/2021 6:24 PM CDT [facility] ALT 36 0 - 61 U/L 02/05/2021 6:24 PM CDT [facility] AST 27 5 - 34 U/L 02/05/2021 6:24 PM CDT [facility] Protein Total 7.2 6.4 - 8.3 gm/dL 02/05/2021 6:24 PM CDT [facility] Albumin 4.4 3.2 - 4.6 gm/dL 02/05/2021 6:24 PM CDT [facility] Bilirubin Total 0.3 0.2 - 1.2 mg/dL 02/05/2021 6:24 PM CDT [facility] eGFR by MDRD 39(L) >60 mL/min/1.7 3m2 02/05/2021 6:24 PM CDT [facility] eGFR by MDRD 47(L) >60 mL/min/1.7 3m2 02/05/2021 6:24 PM CDT [facility] Blood BLOOD SPECIMEN / Unknown Venipuncture / Unknown 02/05/2021 5:58 PM CDT 02/05/2021 6:03 PM CDT Bess Pollack PA-C LAB - CHEMISTRY ORDERABL ES Final Result [facility] [address] [place] [address] from Last 3 Months or Most Recently Relevant to Health Maintenance Insurance [facility] Advance Directives * Full Code (Latest [...] 3:40 PM 06/28/2009 2:23 AM Care Teams Bacteriologist Medical Relationship Specialty Start Date End Date Andre Jeter MD PCP - General Internal Medicine 08/13/15 Ryan Ortega IV, MD Orthopedic Surgery 04/28/12
--- OUTSIDE RECORDS SUMMARY | 2025-04-11 00:42 | XMS_ITS | Clinical Summary ---
Author Organization [facility] Address [address] [place] [id number] Care Team Providers Care Line Leader Name Role Phone Andre Jeter MD Primary Care Provider [phone] Social History Tobacco Use Types Packs/Day Years Used Date Smoking Tobacco: Never Assessed Sex and Gender Information Value Date Recorded Sex Assigned at Not on file Legal Sex Male 10:47 AM CDT Gender Identity Not on file Sexual Orientation Not on file Plan of Treatment Health Maintenance Due Date Last Done Comments Colorectal Cancer Screening Colonoscopy (10 Years) 1953 Hepatitis C 1971 Zoster Vaccines (1 of 2) 2003 COVID-19 Vaccine ( season) 2025 02/25/2023, 02/23/2022, 07/29/2020, Additional history exists Influenza Adult (#1) 2025 01/24/2020, 02/16/2019, 03/04/2018, Additional history exists DTaP, Tdap and Td Vaccines (2 - Td or Tdap) 02/05/2031 02/05/2021 Pneumococcal Vaccine: 50+ Years Completed 04/28/2020, 02/16/2019 RSV Immunization or 60+ Years Completed 03/13/2023 Hepatitis A Vaccines Aged Out No long er eligible based on patient's age to complete this topic Meningococcal B Vaccine Aged Out No l onger eligible based on patient's age to complete this topic Meningococcal Vaccine Aged Out No dexter [place] eligible based on patient's age to complete this topic RSV Immunizations Under 20 Months Aged Out No longer eligible based on patient's age to complete this topic Insurance [facility] Care Teams Line Leader Relationship Specialty Start Date End Date Andre Jeter MD [address] [place] [address] [phone] PCP - General INTERNAL MEDICINE 10/21/23
--- NOTE | 2025-04-11 06:41 | P.HPUP_ITS ---
History and Physical Update Update Date/Time: 04/11/25 06:41 Patient seen and examined in pre-operative holding area. No interval change in medical history or symptoms other than noting slight interval worsening of symptoms at night. Patient recalls previous discussion of benefits and alternatives to procedure. Continues to desire to proceed with right endoscopic possible open carpal tunnel release and right cubital tunnel release. Reviewed procedure, post-op expectations and risks including but not limited to bleeding, infection, injury to tendon/nerve/vessel, decreased hand function, stiffness, RSD, no change or worsening of symptoms. I discussed the possible use of assist ants and their participation in the case. Patient stated understanding and signed the consent form wishing to proceed.
--- NOTE | 2025-04-11 06:41 | P.HP_ITS ---
History of Present Illness History of Present Illness Chief complaint: Mason Carpal & Cubital Tunnel Syn Narrative: Patient seen and examined in pre-operative holding area. No interval change in medical history or symptoms. Patient recalls previous discussion of benefits and alternatives to procedure. Continues to desire to proceed with right endoscopic possible open carpal tunnel release and right cubital tunnel release. Reviewed procedure, post-op expectations and risks including but not limited to bleeding, infection, injury to tendon/nerve/vessel, decreased hand function, stiffness, RSD, no change or worsening of symptoms. I discussed the possible use of assistants and their participation in the case. Patient stated understanding and signed the consent form wishing to proceed. Review of Systems Review of Systems: All systems reviewed & are unremarkable except as noted in HPI and below PMFSH Past Medical History Medical History (Updated 03/26/25 @ 10:25 by Glenis Bird [facility]) Encounter for weight management PVC's (premature ventricular contractions) Numbness of fingers of both hands Cervicalgia Peripheral neuropathy Body mass index (BMI) 40.0-44.9, adult Deep vein thrombosis (DVT) Acute bacterial conjunctivitis of left eye Arm vein blood clot RBBB (right bundle branch block) Deformity of ankle joint Polycythemia History of diverticulitis Dizziness Callus of foot Metabolic syndrome Impaired functional mobility, balance, gait, and endurance Encounter for preventive health examination History of DVT (deep vein thrombosis) Lymphedema Elevated glucose History of COVID-19 Right ankle pain History of fracture of right ankle CKD (chronic kidney disease) stage 1, GFR 90 ml/min or greater Hematuria Flank pain Kidney stone Constipation Lumbar radiculopathy Lumbar spondylosis Vitamin D deficiency Pain of left lower extremity Pre-op exam Onychomycosis Follow up Abnormal nuclear stress test LEACH (dyspnea on exertion) Colon cancer screening Cough Elevated homocysteine Body mass index (BMI) 45.0-49.9, adult Encounter for routine adult health examination without abnormal findings Degenerative joint disease of left knee Insulin resistance Prostate cancer screening FHx: type 2 diabetes mellitus 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 or 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 Venous insufficiency DJD (degenerative joint disease), multiple sites Hyperlipidemia GERD (gastroesophageal reflux disease) High serum chromium level Venous stasis ulcer Skin tag BEBETO on CPAP Hypogonadism in male Exposure to heavy metals Benign essential hypertension Surgical History Surgical History S/P cataract surgery History of total hip replacement Status post total left knee replacement Family History Family History Mother Family history of respiratory disorder Father Family history of sudden , Onset Age: 64 Acute myocardial infarction Social History Social History Smoking status: Never smoker Alcohol intake: current Drinks per week: 4 Lack of Transportation: No Lack of Food: Never True Current Housing: I Have Housing Concerned About Future Housing: No Difficulty Paying Gas/Electric Bills: No Difficulty Paying for Meds: No Currently Unemployed: No Education: High School Diploma/GED Difficulty w/ Childcare or Family Care: No Living arrangements: with family Occupation/Education: retired Gender identity (if verbalized by the patient): Male Spiritual care concerns: No Meds Home Medications and Allergies Home Medications ?Medication ?Instructions ?Recorded ?Confirmed ?Type folic acid 1 mg tablet 1 mg PO DAILY 07/10/1903/26 History mecobalamin (vitamin B12) 1,000 1,000 mcg sublingual D AILY 07/10/19 03/26/25 History mcg disintegrating tablet,sublingual potassium citrate 15 mEq (1,620 15 meq PO DAILY 03/26/25 History mg) tablet,extended release cholecalciferol (vitamin D3) 125 125 mcg PO DAILY 12/3103/26/25 History mcg (5,000 unit) capsule vitamin B complex 1 tablet PO DAILY 05/05/24 1 05/26/24 History hydrochlorothiazide 25 mg tablet 25 mg PO DAILY #90 ta bs 05/18/24 03/26/25 Rx cyclobenzaprine 10 mg tablet 10 mg PO TID PRN muscle s pasm #30 07/20/24 03/26/25 Rx tabs lisinopril 20 See Rx Instructions .Route 0 10/30/24 03/26/25 Rx mg-hydrochlorothiazide 12.5 mg .COMPLEX #180 tabs tablet aspirin 325 mg tablet 325 mg PO DAILY 11/07/24 History icosapent ethyl 1 gram capsule See Rx Instructions .Ro blayne 11/14/24 03/26/25 Rx (Vascepa) .COMPLEX #360 caps sildenafil (pulm.hypertension) 20 20 mg PO TID #90 tab s 01/22/25 03/26/25 Rx mg tablet tadalafil 20 mg tablet 20 mg PO DAILY PRN sexual ac tivity 01/23/25 03/26/25 Rx #90 tabs celecoxib 100 mg capsule See Rx Instructions .Route 1 03/26/25 Rx .COMPLEX #60 caps phentermine 37.5 mg tablet See Rx Instructions .Route 03/06/25 03/26/25 Rx .COMPLEX #15 tabs testosterone undecanoate 237 mg 237 mg PO BID #180 cap s 03/19/25 03/26/25 Rx capsule (Jatenzo) tirzepatide (weight loss) 15 15 mg (0.5 mL) subcut WEE KLY #2 mL 03/26/25 03/26/25 Rx mg/0.5 mL subcutaneous pen injector (Zepbound) rosuvastatin 10 mg tablet See Rx Instructions .Route 1 06/10/24 Rx .COMPLEX #90 tabs Allergies Allergy/AdvReac Type Severity Reaction Status Date / Time No Known Allergies Allergy Verified 03/26/25 10:10 Exam Narrative: unchanged Assessment and Plan Assessment and plan (1) Carpal tunnel syndrome: Qualifiers: Laterality: bilateral Qualified Code(s): G56.03 - Carpal tunnel syndrome, bilateral upper limbs Code(s): G56.00 - Carpal tunnel syndrome, unspecified upper limb Status: Acute Assessment and Plan: cont as above (2) Ulnar neuropathy at elbow: Qualifiers: Laterality: unspecified laterality Qualified Code(s): G56.20 - Lesion of ulnar nerve, unspecified upper limb Code(s): G56.20 - Lesion of ulnar nerve, unspecified upper limb Status: Acute
--- NOTE | 2025-04-11 06:42 | W.PM.PROC2 ---
Procedure Note - Detailed Date of Procedure 04/11/25 Pre-op Diagnosis Mason Carpal & Cubital Tunnel Syn Post-op Diagnosis Same Procedure Performed right ectr and CuTR Surgeon Britney Louis MD Senior Clinical Data Analyst edyta alvarado pa-c Anesthesia MAC Description of Procedure INFORMED CONSENT: The patient was seen and examined and marked in the pre-op area.? The patient signed the consent form. PROCEDURE IN DETAIL:The patient taken back to OR on the stretcher in supine position. Time out performed with anesthesia, surgeon and staff agreeing on patient's name site and surgery to be performed SCDs were placed on the lower extremities and inflated. A tourniquet was placed on {right} upper extremity and antibiotics given IV After anesthesia administered sedation I injected {10}cc 1%lido with epi and 0.5% marcaine plain at the operative sites The?{right upper extremity}?was prepped and draped in sterile fashion the??{right upper extremity} was? exsanguinated with Esmarch bandage and tourniquet inflated to 250mmHg I made a transverse incision in the {right} volar distal wrist crease through skin and dermis with 15 blade scalpel.? Littler scissors spread down to antebrachial fascia. A small incision was made in antebrachial fascia allowing access to Carpal tunnel. I proceeded with sequential dilation staying in line with the ring finger and hugging the hook of the hamate.? I then used the synovial elevator to free any adhesions from the underside of the transverse carpal ligament. Next I was able to insert the Microaire endoscopic carpal tunnel device with direct visualization of the transverse fibers on the monitor and proceeded with complete segmental retrograde release of the ligament in its entirety.? I irrigated with normal saline and closed with 4-0 monocryl for dermis and subcuticular closure. I next proceeded with making a longitudinal incision between two heads for flexor carpi ulnaris at end of {right} cubital tunnel with 15 blade scalpel.? Littler scissors were used to spread down to FCU fascia.? An incision was made in FCU fascia and ulnar nerve identified exiting cubital tunnel.? I proceeded with complete retrograde release of the cubital tunnel including 7cm proximal for the intermuscular septum.? The nerve appeared healthy with visible vaso nervorum.? There was no subluxation on full elbow range of motion. ? I irrigated with normal saline and closure with 4-0 monocryl for dermis and subcuticular. The incisions were covered with Dermabond then 4x4s, dev, and a posterior elbow and volar wrist splint for patient safety, security and comfort and secured with rigo bandages after the tourniquet was let down noting the hand was warm and well perfused.? Patient awaken from anesthesia and transferred to recovery in stable condition Complications - none EBL- 1cc Disposition - home in stable condition Edyta Alvarado PA-C was essential for positioning, retraction, closure and dressing placement. G Billing Surgery - Charge Forward: Surgery Billing ([id number] same for deyta adding )
[2025-04-11 07:05] VITALS: BP 148/77; PULSE 80; RESP 16; TEMP 36.6; O2SAT 99
[2025-04-11] MEDS: ACETAMINOPHEN 500 MG TABLET 1000 MG PO (07:30)
[2025-04-11] MEDS: LACTATED RINGERS 1,000 ML 30 ML IV CONT (07:35)
--- NOTE | 2025-04-11 08:41 | WPDANESEPPF ---
Anes - Initial Pre Proc Eval Procedure: Operation Date: 04/11/25 09:00 Proposed Procedures p Right Endoscopic Carpal Tunnel Release, Possible Open, Right Cubital Tunnel Release - Britney Louis MD Date/Time: 04/11/25 08:41 Surgeon: Britney Louis MD Pre Op Diagnosis: Mason Carpal & Cubital Tunnel Syn Patient Data Age: 69 Gender: M Height: 1.85 m Weight: 144.6 kg Last Vital Signs Temp 36.6 C 04/11/25 07:05 Pulse 80 04/11/25 07:05 Resp 16 04/11/25 07:05 BP 148/77 H 04/11/25 07:05 Pulse Ox 99 04/11/25 07:05 O2 Del Method Room Air 04/11/25 07:05 Allergies Allergy/AdvReac Type Severity Reaction Status Date / Time No Known Allergies Allergy Verified 04/11/25 07:40 Home Medications ?Medication ?Instructions ?Recorded ?Confirmed ?Type folic acid 1 mg tablet 1 mg PO DAILY 07/10/19 04/11/25 History mecobalamin (vitamin B12) 1,000 1,000 mcg sublingual DAILY 07/10/19 04/11/25 History mcg disintegrating tablet,sublingual potassium citrate 15 mEq (1,620 15 meq PO DAILY 10/21/23 04/11/25 History mg) tablet,extended release cholecalciferol (vitamin D3) 125 125 mcg PO DAILY 11/15/23 04/11/25 History mcg (5,000 unit) capsule vitamin B complex 1 tablet PO DAILY 05/05/24 04/11/25 History hydrochlorothiazide 25 mg tablet 25 mg PO DAILY #90 tabs 05/18/24 03/26/25 Rx cyclobenzaprine 10 mg tablet 10 mg PO TID PRN muscle spasm #30 07/20/24 03/26/25 Rx tabs lisinopril 20 See Rx Instructions .Route 10/30/24 04/11/25 Rx mg-hydrochlorothiazide 12.5 mg .COMPLEX #180 tabs tablet aspirin 325 mg tablet 325 mg PO DAILY 11/07/24 04/11/25 History icosapent ethyl 1 gram capsule See Rx Instructions .Route 11/14/24 04/11/25 Rx (Vascepa) .COMPLEX #360 caps sildenafil (pulm.hypertension) 20 20 mg PO TID #90 tabs 01/22/25 03/26/25 Rx mg tablet tadalafil 20 mg tablet 20 mg PO DAILY PRN sexual activity 01/23/25 03/26/25 Rx #90 tabs celecoxib 100 mg capsule See Rx Instructions .Route 02/23/25 04/11/25 Rx .COMPLEX #60 caps phentermine 37.5 mg tablet See Rx Instructions .Route 03/06/25 03/26/25 Rx .COMPLEX #15 tabs testosterone undecanoate 237 mg 237 mg PO BID #180 caps 03/19/25 04/11/25 Rx capsule (Jatenzo) tirzepatide (weight loss) 15 15 mg (0.5 mL) subcut WEEKLY #2 mL 03/26/25 04/11/25 Rx mg/0.5 mL subcutaneous pen injector (Zepbound) Held on 04/11/25. Instructions: Resume on 04/18/25. rosuvastatin 10 mg tablet See Rx Instructions .Route 04/09/25 04/11/25 Rx .COMPLEX #90 tabs tramadol 50 mg tablet 50 mg PO Q6H PRN pain #12 tabs 04/11/25 Rx Patient hx anesthesia problems: none Family hx anesthesia problems: none Results Review: All pre-operative results and documents have been reviewed as part of the pre-operative evaluation. [facility] Past Medical History Medical History Encounter for weight management PVC's (premature ventricular contractions) Numbness of fingers of both hands Cervicalgia Peripheral neuropathy Body mass index (BMI) 40.0-44.9, adult Deep vein thrombosis (DVT) Acute bacterial conjunctivitis of left eye Arm vein blood clot RBBB (right bundle branch block) Deformity of ankle joint Polycythemia History of diverticulitis Dizziness Callus of foot Metabolic syndrome Impaired functional mobility, balance, gait, and endurance Encounter for preventive health examination History of DVT (deep vein thrombosis) Lymphedema Elevated glucose History of COVID-19 Right ankle pain History of fracture of right ankle CKD (chronic kidney disease) stage 1, GFR 90 ml/min or greater Hematuria Flank pain Kidney stone Constipation Lumbar radiculopathy Lumbar spondylosis Vitamin D deficiency Pain of left lower extremity Pre-op exam Onychomycosis Follow up Abnormal nuclear stress test LEACH (dyspnea on exertion) Colon cancer screening Cough Elevated homocysteine Body mass index (BMI) 45.0-49.9, adult Encounter for routine adult health examination without abnormal findings Degenerative joint disease of left knee Insulin resistance Prostate cancer screening FHx: type 2 diabetes mellitus On joint terminal attack controller drug therapy Venous insufficiency DJD (degenerative joint disease), multiple sites Hyperlipidemia GERD (gastroesophageal reflux disease) High serum chromium level Venous stasis ulcer Skin tag BEBETO on CPAP Hypogonadism in male Exposure to heavy metals Benign essential hypertension Surgical History Surgical History S/P cataract surgery History of total hip replacement Status post total left knee replacement Family History Family History Mother Family history of respiratory disorder Father Family history of sudden , Onset Age: 64 Acute myocardial infarction Social History Social History Smoking status: Never smoker Alcohol intake: current Drinks per week: 4 Lack of Transportation: No Lack of Food: Never True Current Housing: I Have Housing Concerned About Future Housing: No Difficulty Paying Gas/Electric Bills: No Difficulty Paying for Meds: No Currently Unemployed: No Education: High School Diploma/GED Difficulty w/ Childcare or Family Care: No Living arrangements: with family Occupation/Education: retired Gender identity (if verbalized by the patient): Male Spiritual care concerns: No Anes - Eval Final PreProcedure Day of Procedure 04/11/25 08:41 Patient weight: morbidly obese Heart: regular rate and rhythm Lungs: decreased breath sounds Airway: Mallampati scale class II Neurological: alert and oriented Last oral intake: >/= 8 hours ASA classification: III Emergent: no Anesthetic plan: proceed Anesthesia type and monitoring: general GIVS and standard monitoring Results Review: All pre-operative results and documents have been reviewed as part of the pre-operative evaluation. Informed Consent: The patient's anesthetic plan and its attendant risks and benefits were discussed with the patient/family/POA. Questions were solicited and answers provided to the satisfaction of the patient/family/POA.
[2025-04-11] MEDS: ceFAZolin 3 GM/D5W 100 ML 100 ML IVPB (08:45)
[2025-04-11] MEDS: BUPivacaine HCL 0.5% 10 ML AMP INFILTRATE (08:48)
[2025-04-11] MEDS: LIDO 1%/EPINEPHRINE/PF 1:200,000 30 ML VIAL 10 ML XX (08:48)
[2025-04-11 09:19] VITALS: BP 98/53; PULSE 97; RESP 14; O2SAT 93
[2025-04-11 09:30] VITALS: BP 104/52; PULSE 89; O2SAT 94
[2025-04-11 10:00] VITALS: BP 136/83; PULSE 74
== END 2025-04-11 10:25 | disposition home or self-care (01) ==
PROVIDERS: PCP Internal Medicine; Visit Provider Plastic Surgery
PROC: 01N54ZZ Release Median Nerve, Percutaneous Endoscopic Approach (ICD-10-PCS; CPT 29848; principal; 2025-04-11 09:00)
DX: G56.01 Carpal tunnel syndrome, right upper limb (principal); G56.21 Lesion of ulnar nerve, right upper limb; E66.01 Morbid (severe) obesity due to excess calories; Z68.41 Body mass index [BMI] 40.0-44.9, adult
CPT/HCPCS: 29848; 64718; A9270; J0690; J2004; J2250; J2270; J2704; J7120

== ENCOUNTER 2025-04-26 15:57 | Outpatient (CLI) | payer BC, SELFPAY ==
--- NOTE | ~2025-04-26 | XR_ITS ---
EXAMINATION: XR chest 2V, 04/26/2025 16:10 OUTSOLE TACKER HISTORY: R05.9 - Cough, unspecified COMPARISON: No comparisons available. Technique: 2 views obtained. Findings: Small basilar infiltrates. No pneumothorax. Heart is normal size. Mediastinal and hilar contours are within normal limits. Bony thorax no acute abnormality. Impression: Early bilateral pneumonia Reviewed, dictated and finalized at location P. OLE TACKER Impression: Early bilateral pneumonia
== END 2025-04-26 15:58 | disposition home or self-care (01) ==
LOC: MICIMG 15:58
PROVIDERS: PCP Internal Medicine; Visit Provider Internal Medicine
DX: R05.9 Cough, unspecified (principal); J18.9 Pneumonia, unspecified organism
CPT/HCPCS: 71046

== ENCOUNTER 2025-05-08 10:01 | Outpatient (CLI) | payer BC, SELFPAY ==
--- NOTE | ~2025-05-08 | XR_ITS ---
XR chest 2V 05/08/2025 10:16 Indication: Cough Procedure: 2 view chest Comparison: 04/26/2025 and 01/23/2004 Findings: Bibasilar atelectasis. Focal opacity right mid thorax which may represent fluid in the fissure or focal consolidation. Heart size normal. No edema or pneumothorax. No significant effusion. There is diffuse idiopathic skeletal hyperostosis (DISH) of the thoracic spine. Impression: 1: Possible small loculated effusion in the minor fissure versus focal consolidation. 2: Bibasilar atelectasis/scarring. Reviewed, dictated and finalized at location O. SPRING TORQUE TESTER Impression: 1: Possible small loculated effusion in the minor fissure versus focal consolid ation. 2: Bibasilar atelectasis/scarring.
== END 2025-05-08 10:02 | disposition home or self-care (01) ==
LOC: MICIMG 10:02
PROVIDERS: PCP Internal Medicine; Visit Provider Internal Medicine
DX: J98.11 Atelectasis (principal); J98.4 Other disorders of lung
CPT/HCPCS: 71046

== ENCOUNTER 2025-05-09 15:50 | Outpatient (CLI) | payer BC, SELFPAY ==
--- OUTSIDE RECORDS SUMMARY | 2025-05-09 15:53 | XMS_ITS | Clinical Summary ---
Author Organization [facility] Address [address] [place] [id number] Care Team Providers Care Cdl Driver Name Role Phone Andre Jeter MD Primary Care Provider [phone] Social History Tobacco Use Types Packs/Day Years [...] topic Insurance [facility] Care Teams Cdl Driver Relationship Specialty Start Date End Date Andre Jeter MD [address] [place] [address] [phone] PCP - General INTERNAL MEDICINE 10/21/23
--- OUTSIDE RECORDS SUMMARY | 2025-05-09 15:53 | XMS_ITS | Clinical Summary ---
Author Organization [facility] Address [address] [place] [address] Care Team Providers Care Light Rail Operator Name Role Phone Shannon HENDRIX MD, Ryan Unavailable [phone] Andre Jeter MD Primary Care Provider [phone] Source Comments [facility],non-owned Affiliates and Associated Physician Practices is amultiple site organization consisting of ambulatory clinics and hospital sitesin [place], [place], [place] and [place]. This disclosure is being madepursuant to the Care Everywhere program and may not contain all information available regarding this patient. 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 Gender Identity Not on file Sexual Orientation [...] 149.7 kg (330 lb) 07/08/2021 11:50 AM WOOD MACHINE CARVER Height 185.4 cm (6' 1) 02/07/2021 10:08 [...] this topic Medical Devices Implanted Type Area Operator Weapon Locating Radar Device Identifier Shelf Expiration Date Model / Serial / Lot Seal Dura 5ml Implanted:Qty: 1 on 08/29/2015 by Miguel Grissom MD at [facility] Back [employer] 06/09/2016 [id number] / / [id number] Cmnt Bone Djo Srg Cblt 40gm Hvisc Strl Implanted:Qty: 1 on 02/26/2020 by Frantz Levy MD at [facility] Left: Knee [employer] 01/31/2021 600-15-000 / / [id number] Harshal Bone Dyer-G Hv 40/20 Implanted:Qty: 1 on 02/26/2020 by Frantz Levy MD at [facility] Left: Knee [employer] 06/02/2020 600-15-100 / / [id number] Cmpnt Fem Kn Lt Cr Cmnt Prm Vngrd Intlk Implanted:Qty: 1 on 02/26/2020 by Frantz Levy MD at [facility] Left: Knee [employer] 07/08/2029 [id number] / / [id number] Cmpnt Ptlr 31mm 1 Pg Wire Ascnt Arcm Kn Implanted:Qty: 1 on 02/26/2020 by Frantz Levy MD at [facility] Left: Knee [employer] 01/01/2025 [id number] / / [id number] Tray Tib 83mm Kn Cocr I Beam Implanted:Qty: 1 on 02/26/2020 by Frantz Levy MD at [facility] Left: Knee [employer] 11/10/2029 [id number] / / [id number] Brng [id number] Vngrd Arcm Kn Ant Stab Implanted:Qty: 1 on 02/26/2020 by Frantz Levy MD at [facility] Left: Knee [employer] 07/21/2023 [id number] / / [id number] Procedures Procedure Name Priority Date/Time Associated Diagnosis Comments COMPREHENSIVE METABOLIC PANEL STAT 02/05/2021 5:58 PM CDT from Last 3 Months or Most Recently Relevant to Health Maintenance Results * (ABNORMAL) COMPREHENSIVE METABOLIC PANEL (02/05/2021 5:58 PM CDT) [facility] Glucose 92 70 - 105 mg/dL 02/05/2021 6:24 PM CDT [facility] Sodium 142 136 - 145 mmol/L 02/05/2021 6:24 PM CDT [facility] Potassium 4.6 3.5 - 5.1 mmol/L 02/05/2021 6:24 PM CDT [facility] Chloride 105 98 - 107 mmol/L 02/05/2021 6:24 PM CDT [facility] CO2 24 23 - 31 mmol/L 02/05/2021 6:24 PM CDT [facility] Calcium 10.2 8.4 - 10.4 mg/dL 02/05/2021 6:24 PM CDT [facility] Anion Gap 13 8 - 18 mmol/L 02/05/2021 6:24 PM CDT [facility] BUN 25 8.4 - 25.7 mg/dL 02/05/2021 6:24 PM CDT [facility] Creatinine 1.75(H) 0.72 - 1.25 mg/dL 02/05/2021 6:24 PM CDT [facility] Alkaline Phosphatase 50 40 - 150 U/L 02/05/2021 6:24 PM CDT [facility] ALT 36 0 - 61 U/L 02/05/2021 6:24 PM CDT [facility] AST 27 5 - 34 U/L 02/05/2021 6:24 PM CDT [facility] Protein Total 7.2 6.4 - 8.3 gm/dL 02/05/2021 6:24 PM CDT [facility] Albumin 4.4 3.2 - 4.6 gm/dL 02/05/2021 6:24 PM CDT [facility] Bilirubin Total 0.3 0.2 - 1.2 mg/dL 02/05/2021 6:24 PM CDT [facility] eGFR by MDRD 39(L) >60 mL/min/1.7 3m2 02/05/2021 6:24 PM CDT [facility] eGFR by MDRD 47(L) >60 mL/min/1.7 3m2 02/05/2021 6:24 PM CDT [facility] Blood BLOOD SPECIMEN / Unknown Venipuncture / Unknown 02/05/2021 5:58 PM CDT 02/05/2021 6:03 PM CDT Bess Pollack PA-C LAB - CHEMISTRY ORDERABL ES Final Result [facility] [address] [place] [address] from Last 3 Months or Most Recently Relevant to Health Maintenance Insurance [facility] MEDICARE Advance Directives * Full Code (Latest [...] 3:40 PM 06/28/2009 2:23 AM Care Teams Light Rail Operator Relationship Specialty Start Date End Date Andre Jeter MD PCP - General Internal Medicine 08/13/15 Ryan Ortega IV, MD Orthopedic Surgery 04/28/12
== END 2025-05-09 15:51 | disposition home or self-care (01) ==
PROVIDERS: PCP Internal Medicine; Visit Provider Internal Medicine
DX: R06.02 Shortness of breath (principal)
CPT/HCPCS: 36415; 85380